=== PATIENT | male | born 1955 | race African-American/Black ===

== ENCOUNTER 2018-08-16 05:43 | Emergency (ER) | payer OTHER ==
[~2018-08-16] VITALS: Ht 182.9 cm; Wt 90.7 kg
[2018-08-16] MEDS ORDERED: LEXAPRO10 MG ORAL (05:53)
[2018-08-16] MEDS ORDERED: KEPPRA500 M4 ORAL (05:53)
[2018-08-16] MEDS ORDERED: VITAMIN D2000 UNI3 PO (05:53)
[2018-08-16] MEDS ORDERED: SEROQUEL50 MG ORAL (05:53)
[2018-08-16 05:55] VITALS: BP 118/66
--- NOTE | 2018-08-16 05:55 | NUR ---
ED Nurse Note: Patient was BIBA, with complaints of recent seizyre lasing 4 minutes, at half-way facility. Patient present post ictal, sleeping, waking periodically in a confused state attempting to get up out of bed.
[2018-08-16] MEDS ORDERED: LORazepam Inj 2mg/ml 1ml IV ONE (06:15)
[2018-08-16] MEDS ORDERED: levETIRAcetam 500mg/NS100ml 100 ML IVPB ONE (06:15)
--- NOTE | 2018-08-16 06:15 | Emergency Room Report ---
History of Present Illness General Chief Complaint: Seizure Source: Medical Record (Gael Robles MD) Present Illness HPI Is a 63-year-old male coming from a longterm with chief point of seizure. He has a history of seizure is currently taking Keppra. He had a tonic-clonic seizure activity lasting about 4-5 minutes. He is post ictal. No other injury. No incontinence of his urine or bowel. History is limited because of his postictal state. (Gael Robles MD) Allergies: Coded Allergies: No Known Allergies (Unverified , 08/16/18) Patient History Past Medical History: see triage record, old chart reviewed, seizures Past Surgical History: other Pertinent Family History: none Social History: Denies: smoking Immunizations: other Reviewed Nursing Documentation: PMH: Agreed; PSxH: Agreed (Gael Robles MD) Nursing Documentation-PMH Past Medical History: No History, Except For Hx Hypertension: Yes Hx Neurological Problems: Yes - dementia, schizophrenia, depression, traumatic brain injury Hx Seizures: Yes (Gael Robles MD) Review of Systems Eye: Denies: eye pain, blurred vision ENT: Denies: ear pain, nose congestion, throat swelling Respiratory: Denies: cough, shortness of breath Cardiovascular: Denies: chest pain, palpitations Gastrointestinal: Denies: abdominal pain, diarrhea, nausea, vomiting Musculoskeletal: Denies: back pain, joint pain Skin: Denies: rash Neurological: Denies: headache, numbness Endocrine: Denies: increased thirst, increased urine Hematologic/Lymphatic: Denies: easy bruising All Other Systems: limited - Secondary to post ictal state (Gael Robles MD) Physical Exam Vital Signs Date Time Temp Pulse Resp B/P (MAP) Pulse Ox O2 Delivery O2 Flow Rate FiO2 08/16/18 05:46 118 18 118/66 95 Room Air vitals with tachycardia Sp02 EP Interpretation: reviewed, normal General Appearance: well appearing, no apparent distress, other - Agitated Head: normocephalic, atraumatic Eyes: bilateral eye PERRL, bilateral eye EOMI ENT: hearing grossly normal, normal pharynx Neck: full range of motion, supple, no meningismus Respiratory: chest non-tender, lungs clear, normal breath sounds Cardiovascular #1: regular rate, rhythm, no murmur Gastrointestinal: normal bowel sounds, non tender, no mass, no organomegaly, no bruit, non-distended Musculoskeletal: back normal, normal range of motion Neurologic: grossly normal Skin: warm/dry (Gael Robles MD) Medical Decision Making Diagnostic Impression: Primary Impression: Seizure disorder ER Course Patient presents with a seizure with a postictal state. Labs ordered. I gave him a dose of Keppra here. I will sign this patient out to Dr. Palm for final disposition. (Gael Robles MD) ER Course Please see above note. Patient still not following commands at this time. It's difficult to ascertain the baseline mental status. He does have a history of schizophrenia and prior traumatic brain injury. In April for a Keppra level was 14 which is low but still possibly therapeutic. Labs here reveal white count of 12,000. This may be related to the seizure. A chest x-ray is ordered. Patient is tachycardic and IV hydration will be continued. Due to the fact that the patient has uncontrolled seizures at this time and difficult to ascertain mentation we will admit him to telemetry for observation and neurologic consultation. Just before transfer, patient more alert and appropriate - following commands. Still needs observation. Contacted Dr. Davidson at [facility] who accepts the patient. Laboratory Tests Test 08/16/18 06:10 White Blood Count 12.0 K/UL (4.8-10.8) H Red Blood Count 5.36 M/UL (4.70-6.10) Hemoglobin 15.7 G/DL (14.2-18.0) Hematocrit 50.4 % (42.0-52.0) Mean Corpuscular Volume 94 FL (80-99) Mean Corpuscular Hemoglobin 29.3 PG (27.0-31.0) Mean Corpuscular Hemoglobin Concent 31.2 G/DL (32.0-36.0) L Red Cell Distribution Width 13.2 % (11.6-14.8) Platelet Count 175 K/UL (150-450) Mean Platelet Volume 6.9 FL (6.5-10.1) Neutrophils (%) (Auto) 60.2 % (45.0-75.0) Lymphocytes (%) (Auto) 29.3 % (20.0-45.0) Monocytes (%) (Auto) 6.9 % (1.0-10.0) Eosinophils (%) (Auto) 1.8 % (0.0-3.0) Basophils (%) (Auto) 1.9 % (0.0-2.0) Sodium Level 139 MMOL/L (136-145) Potassium Level 4.3 MMOL/L (3.5-5.1) Chloride Level 99 MMOL/L (98-107) Carbon Dioxide Level 15 MMOL/L (21-32) L Anion Gap 26 mmol/L (5-15) H Blood Urea Nitrogen 9 mg/dL (7-18) Creatinine 1.7 MG/DL (0.55-1.30) H Estimate Glomerular Filtration Rate 41.2 mL/min (>60) Glucose Level 222 MG/DL (74-106) H Calcium Level 9.8 MG/DL (8.5-10.1) (Chico Palm MD) Rhythm Strip Diag. Results EP Interpretation: yes Rate: 115 Rhythm: NSR, no PVC's, no ectopy (Gael Robles MD) EP Interpretation: yes Rhythm: no PVC's, other - Sinus tachycardia (Chico Palm MD) Chest X-Ray Diagnostic Results Chest X-Ray Diagnostic Results : Chest X-Ray Ordered: Yes # of Views/Limited/Complete: 1 View Indication: Other EP Interpretation: Yes Interpretation: no effusion, no pneumothorax, other - increased okeefe R but poor inspriation Impression: Other Electronically Signed by: Electronically signed by Chico Palm MD (Chico Palm MD) Last Vital Signs Date Time Temp Pulse Resp B/P (MAP) Pulse Ox O2 Delivery O2 Flow Rate FiO2 08/16/18 05:46 118 18 118/66 95 Room Air Status: improved (Gael Robles MD) Last Vital Signs Date Time Temp Pulse Resp B/P (MAP) Pulse Ox O2 Delivery O2 Flow Rate FiO2 08/16/18 09:22 97.6 103 20 135/94 100 Nasal Cannula 2.0 Status: improved (Chico Palm MD) Disposition: XFER SHT-TRM HOSP Condition: Serious Gael Robles MD Aug 16, 2018 06:15 Chico Palm MD Aug 16, 2018 07:42
[2018-08-16 06:31] LABS: BASOPHILS % (AUTO) 1.9 % (0.0-2.0); EOSINOPHILS % (AUTO) 1.8 % (0.0-3.0); HEMATOCRIT 50.4 % (42.0-52.0); HEMOGLOBIN 15.7 G/DL (14.2-18.0); LYMPHOCYTES % (AUTO) 29.3 % (20.0-45.0); MEAN CORPUSCULAR VOLUME 94 FL (80-99); MONOCYTES % (AUTO) 6.9 % (1.0-10.0); NEUTROPHILS % (AUTO) 60.2 % (45.0-75.0); PLATELET COUNT 175 K/UL (150-450); RED BLOOD COUNT 5.36 M/UL (4.70-6.10); RED CELL DISTRIBUTION WIDTH 13.2 % (11.6-14.8)
[2018-08-16 06:39] LABS: ANION GAP 26 mmol/L (5-15); BLOOD UREA NITROGEN 9 mg/dL (7-18); CALCIUM 9.8 MG/DL (8.5-10.1); CARBON DIOXIDE 15 MMOL/L (21-32); CHLORIDE 99 MMOL/L (98-107); CREATININE 1.7 MG/DL (0.55-1.30); POTASSIUM 4.3 MMOL/L (3.5-5.1); SODIUM 139 MMOL/L (136-145)
--- NOTE | 2018-08-16 06:54 | NUR ---
ED Nurse Note: Patient wass administered 1 mg of ativan, he is no sleeping comfortably, vital signs are normalizing, pulse is still elevated at 107. Normal saline currently running.
--- NOTE | 2018-08-16 07:12 | NUR ---
HAND-OFF: Report given to MILA FERNANDEZ RN .
--- NOTE | 2018-08-16 07:24 | NUR ---
ED Nurse Note: Received pt from NITA Pearson. Pt is in bed sleeping comfortably, HR 110 annemarie, ERMD aware. No further order at this time. Seizure precaution applied. Will cont to monitor.
[2018-08-16 07:37] VITALS: BP 98/34
--- NOTE | 2018-08-16 07:55 | NUR ---
ED Nurse Note: Xray at the bedside.
[2018-08-16 09:12] VITALS: BP 135/94
--- NOTE | 2018-08-16 09:13 | NUR ---
ED Nurse Note: Report given to NITA Alexander at [facility]. Awaiting fot transportation. No sign of acute distress.
[2018-08-16 09:22] VITALS: BP 135/94
--- NOTE | 2018-08-16 09:22 | NUR ---
ED Nurse Note: Ambulance personels at bedside for transportation. no acute distress.
--- NOTE | 2018-08-16 12:16 | Diagnostic Imaging Report ---
Indication: Cough Technique: One view of the chest Comparison: none Findings: Inspiration is suboptimal. The heart is borderline enlarged. There is equivocal minimal interstitial congestion. No focal infiltrates. Pleural spaces are grossly clear Impression: Borderline cardiomegaly Equivocal minimal interstitial congestion
== END 2018-08-16 09:22 | disposition other institution (70) ==
LOC: EDBD 05:43 → EMR 06:42
DX: G40.909 Epilepsy, unspecified, not intractable, without status epilepticus (principal); I10 Essential (primary) hypertension; Z79.899 Other long term (current) drug therapy; F03.90 Unspecified dementia, unspecified severity, without behavioral disturbance, psychotic disturbance, mood disturbance, and anxiety; F20.9 Schizophrenia, unspecified
CPT/HCPCS: 36415; 71045; 80048; 85025; 96361; 96374; 96375; 99284; J1953

== ENCOUNTER 2019-07-07 01:45 | Inpatient (IN) | payer OTHER ==
[~2019-07-07] VITALS: Ht 170.2 cm; Wt 72.6 kg
[~2019-07-07 01:45] MED LIST: KEPPRA500 M4 ORAL; LEXAPRO10 MG ORAL; SEROQUEL50 MG ORAL; VITAMIN D2000 UNI3 PO
--- NOTE | 2019-07-07 01:54 | Emergency Room Report ---
History of Present Illness General Chief Complaint: Seizure Source: Medical Record, EMS Present Illness HPI This is a 64-year-old male from a assisted. He has a history of seizure for which she takes Keppra. He presents with chief plan of seizure. According to EMS, he had at least 5 tonic-clonic seizure activity. Each of them lasted about 30 seconds to a minute. He received 5 mg Versed IM by EMS to stop his seizure. Unable to get any other history because he is sedated and postictal. Per assisted note, he is compliant with his medication. No trauma. Unable any other history from this patient because of his postictal. Allergies: Coded Allergies: No Known Allergies (Unverified , 08/16/18) Patient History Past Medical History: see triage record, old chart reviewed, seizures Past Surgical History: other Pertinent Family History: none Social History: Denies: smoking Immunizations: other Reviewed Nursing Documentation: PMH: Agreed; PSxH: Agreed Nursing Documentation-PMH Hx Hypertension: Yes Hx Neurological Problems: Yes - dementia, schizophrenia, depression, traumatic brain injury Hx Seizures: Yes Review of Systems All Other Systems: limited - Post ictal Physical Exam Vital Signs Date Time Temp Pulse Resp B/P (MAP) Pulse Ox O2 Delivery O2 Flow Rate FiO2 07/07/19 01:46 98.4 128 20 133/62 (85) 96 Room Air Vitals with tachycardia Sp02 EP Interpretation: reviewed, normal General Appearance: well appearing, no apparent distress, Stupor Head: normocephalic, atraumatic Eyes: bilateral eye PERRL, bilateral eye EOMI ENT: hearing grossly normal, normal pharynx, other Neck: full range of motion, supple, no meningismus Respiratory: chest non-tender, lungs clear, normal breath sounds Cardiovascular #1: regular rate, rhythm, no murmur, tachycardia Gastrointestinal: normal bowel sounds, non tender, no mass, no organomegaly, no bruit, non-distended Musculoskeletal: back normal, normal range of motion Neurologic: grossly normal Psychiatric: other Medical Decision Making Diagnostic Impression: Primary Impression: Status epilepticus, generalized convulsive ER Course Patient presents with multiple small seizures. Seizure control with benzodiazepine. I loaded him with Keppra also. No evidence of any infection or intracranial injury. Will place in observation. No evidence of any infection or alcohol drugs. I contacted Dr. Romano for admission. EKG Diagnostic Results Rate: tachycardiac Rhythm: NSR ST Segments: other - bifasicular block Rhythm Strip Diag. Results EP Interpretation: yes Rate: 100 Rhythm: NSR, no PVC's, no ectopy Chest X-Ray Diagnostic Results Chest X-Ray Diagnostic Results : Chest X-Ray Ordered: Yes # of Views/Limited/Complete: 1 View Indication: Shortness of Breath EP Interpretation: Yes Interpretation: no consolidation, no effusion, no pneumothorax, no acute cardiopulmonary disease Impression: No acute disease Electronically Signed by: Gael Robles MD CT/MRI/US Diagnostic Results CT/MRI/US Diagnostic Results : Imaging Test Ordered: CT head Impression Read by radiologist as neg. Last Vital Signs Date Time Temp Pulse Resp B/P (MAP) Pulse Ox O2 Delivery O2 Flow Rate FiO2 07/07/19 01:46 98.4 128 20 133/62 (85) 96 Room Air Status: improved Disposition: PLACE IN OBSERVATION Condition: Serious Gael Robles MD Jul 07, 2019 01:54
[2019-07-07] MEDS ORDERED: levETIRAcetam 500 MG in D5W 110 ML IV ONE (02:00)
[2019-07-07] MEDS ORDERED: LORazepam Inj 2mg/ml 1ml IV ONE (02:00)
[2019-07-07] MEDS ORDERED: SEROQUEL100 MG ORAL (02:02)
[2019-07-07] MEDS ORDERED: KEPPRA500 M4 ORAL (02:02)
[2019-07-07] MEDS ORDERED: VITAMIN D32000 UNI3 PO (02:02)
[2019-07-07] MEDS ORDERED: ASPIR 8181 MG ORAL (02:02)
[2019-07-07 02:12] LABS: BASOPHILS % (AUTO) 2.1 % (0.0-2.0); EOSINOPHILS % (AUTO) 2.2 % (0.0-3.0); HEMATOCRIT 47.4 % (42.0-52.0); HEMOGLOBIN 16.1 G/DL (14.2-18.0); LYMPHOCYTES % (AUTO) 39.2 % (20.0-45.0); MEAN CORPUSCULAR VOLUME 90 FL (80-99); MONOCYTES % (AUTO) 9.9 % (1.0-10.0); NEUTROPHILS % (AUTO) 46.6 % (45.0-75.0); PLATELET COUNT 176 K/UL (150-450); RED BLOOD COUNT 5.28 M/UL (4.70-6.10); RED CELL DISTRIBUTION WIDTH 12.4 % (11.6-14.8); WHITE BLOOD COUNT 9.9 K/UL (4.8-10.8)
--- NOTE | 2019-07-07 02:12 | NUR ---
ED Nurse Note: Patient returned from CT in stable condition and placed back on registered nurse cardiac telemetry.
--- NOTE | 2019-07-07 02:12 | NUR ---
ED Nurse Note: Patient brought in by ambulance from [facility] d/t witnessed seizures 4x in 1 hour. Per EMS, seizures lasted 1-2 minutes each. Patient post-ictal upon arrival, no seizures witnessed. Patient not alert or oriented, and nonverbal. Patient non-ambulatory at this time. Patient placed in gown and monitoring analyst. Blood sugar 138 mg/dL. Patient placed on 2L nasal cannula and side rails padded. Right hand 20g IV established, blood and urine collected and sent to lab. Per EMS, facility states patient is usually aao x 2.
[2019-07-07 02:13] LABS: APPEARANCE,URINE CLEAR; BILIRUBIN, URINE NEGATIVE (NEGATIVE); COLOR,URINE PALE YELLOW; GLUCOSE, URINE (UA) NEGATIVE (NEGATIVE); KETONES,URINE NEGATIVE (NEGATIVE); LEUKOCYTE ESTERASE ,URINE NEGATIVE (NEGATIVE); NITRITE,URINE NEGATIVE (NEGATIVE); PH,URINE 6.5 (4.5-8.0); UROBILINOGEN,URINE NORMAL MG/DL (0.0-1.0)
[2019-07-07 02:15] LABS: PROTEIN,URINE NEGATIVE (NEGATIVE)
[2019-07-07 02:22] LABS: ANION GAP 23 mmol/L (5-15); BLOOD UREA NITROGEN 7 mg/dL (7-18); CALCIUM 8.9 MG/DL (8.5-10.1); CARBON DIOXIDE 17 MMOL/L (21-32); CHLORIDE 101 MMOL/L (98-107); CREATININE 1.4 MG/DL (0.55-1.30); POTASSIUM 3.6 MMOL/L (3.5-5.1); SODIUM 141 MMOL/L (136-145)
[2019-07-07 02:27] VITALS: BP 111/67
[2019-07-07 02:27] LABS: ALANINE AMINOTRANSFERASE 68 U/L (12-78); ALBUMIN 3.7 G/DL (3.4-5.0); ALBUMIN/GLOBULIN RATIO 0.8 (1.0-2.7); ALKALINE PHOSPHATASE 88 U/L (46-116); ASPARTATE AMINO TRANSFERASE 46 U/L (15-37); BILIRUBIN,TOTAL 0.2 MG/DL (0.2-1.0)
--- NOTE | 2019-07-07 02:42 | Diagnostic Imaging Report ---
Indications: Seizure Technique: Spiral acquisitions obtained through the brain. Angled axial and coronal 5 x 5 mm slices were reconstructed. Total dose length product 1304 mGycm. CTDI vol(s) 6 mGy. Dose reduction achieved using automated exposure control Comparison: None. Findings: There is enlargement of the lateral ventricles which is slightly out of proportion to the size of the sulci. There is encephalomalacia involving the left frontal, parietal, and temporal lobes. There is a small focus of encephalomalacia in the right frontal lobe. There is evidence of an old right frontal jarred hole. No acute intracranial hemorrhage or edema. Normal arguello-white differentiation otherwise. No mass effect nor midline shift. Intact calvarium. The mastoids are clear. Visualized orbits and sinuses are unremarkable. Impression: Ventriculomegaly, likely due to central volume loss but the possibility of hydrocephalus should also be considered. Multiple areas of encephalomalacia, as described. Most likely on the basis of old infarcts but may indicate other prior insults as well. Evidence of prior right frontal jarred hole Negative for acute cranial bleed or mass effect This essentially agrees with the preliminary interpretation provided overnight by [facility] teleradiology service, with minor variation. The CT scanner at [facility] is accredited by the [employer] and the scans are performed using protocols designed to limit radiation exposure to as low as reasonably achievable to attain images of sufficient resolution adequate for diagnostic evaluation.
--- NOTE | 2019-07-07 03:48 | NUR ---
ED Nurse Note: Report given to NITA Curry in telemetry.
--- NOTE | 2019-07-07 04:20 | NUR ---
ED Nurse Note: Patient transferred to telemetry unit via [place] on ACLS protocol with phototypesetting equipment monitor accompanied by 1 RN and outdoor emergency care technician in stable condition.
--- NOTE | 2019-07-07 04:30 | NUR ---
NURSE NOTES: Received report from FAIZA Medina RN. Patient was transferred to Telemetry unit from ER via [facility], 2 staff member assist without incident. No signs of acute distress or pain noted at this time. On 2L nasal cannula. AOx0; unable to verbalize needs. Aphasic. Checked IV site; patent and flushed. No erythema, bleeding, or infiltration noted. Patient put on Tele box; sinus tachycardic with BBB on the monitor (110s). Belongings list checked with transferring RN. Skin assessment performed; skin is intact. No open wounds noted. Bed at lowest position, brakes on, siderails up x3. Siderails padded following seizure precautions. Suction at bedside. Call light within reach. Will continue to monitor.
[2019-07-07 04:40] VITALS: BP 123/71
[2019-07-07] MEDS ORDERED: COLACE100 MG ORAL (04:48)
[2019-07-07] MEDS ORDERED: QUETIAPINE FUMA25 MG ORAL (04:48)
--- NOTE | 2019-07-07 05:43 | NUR ---
NURSE NOTES: Called Dr. Romano for admission orders. Awaiting callback.
--- NOTE | 2019-07-07 06:05 | NUR ---
NURSE NOTES: Received new orders from Dr. Romano including no DVT prophylaxis. Noted and carried out.
--- NOTE | 2019-07-07 06:16 | NUR ---
NURSE NOTES: Called Dr. Romano again for admission orders. Awaiting callback.
[2019-07-07] MEDS ORDERED: LORazepam Inj 2mg/ml 1ml IV PRN (07:00)
--- NOTE | 2019-07-07 07:10 | NUR ---
NURSE NOTES: pt on vehicle monitor technician, plans to transfer to Med surg. Pt on vehicle monitor technician no signs of cardiac or respiratory distress. Bed rails are added. Call light within reach. Bed locked and in lowest position . will continue to monitor pt.
[2019-07-07 09:00] VITALS: BP 119/71
[2019-07-07] MEDS ORDERED: Vitamin D 1000 IU Tab ORAL SCH (09:00)
[2019-07-07] MEDS ORDERED: Docusate 100mg cap ORAL SCH (09:00)
[2019-07-07] MEDS ORDERED: Aspirin EC 81mg tab ORAL SCH (09:00)
--- NOTE | 2019-07-07 10:41 | Diagnostic Imaging Report ---
Indication: Shortness of breath Technique: One view of the chest Comparison: 08/16/2018 Findings body habitus limits evaluation.: The heart is borderline enlarged. The there are equivocal minimal interstitial congestive changes, similar to the prior exam. No focal airspace consolidation. No definite effusions.. Impression: Borderline cardiomegaly Equivocal minimal interstitial congestion. Correlate with clinical findings
[2019-07-07 12:00] VITALS: BP 104/41
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
[2019-07-07 16:00] VITALS: BP 111/71
--- NOTE | 2019-07-07 16:30 | History and Physical Report ---
DATE OF ADMISSION: 07/07/2019 HISTORY OF PRESENT ILLNESS: This is an elderly 64-year-old male currently came to the emergency room for having recurrent seizure. The patient now in the bed sleeping. PAST MEDICAL HISTORY: Significant for hypertension, seizure, depression. MEDICATIONS: He is taking Seroquel, Keppra, Colace, vitamin D, aspirin. PHYSICAL EXAMINATION: GENERAL: This is an elderly male, currently in bed and sleeping, looks otherwise comfortable. VITAL SIGNS: Blood pressure is 123/71, pulse 119, respirations 24, temperature 99.1. HEENT: AT/NC. EOMI. PERRLA. NECK: Supple. No JVD. CHEST: Bilaterally clear. CARDIOVASCULAR: Regular rhythm, tachycardia sinus. ABDOMEN: Soft. Positive bowel sounds. EXTREMITIES: CCE. GENITOURINARY: Deferred. LABORATORY DATA: White count 10, hemoglobin 16, hematocrit 47, platelets are 176. Chemistry panel, BUN 7, creatinine 1.4. LFTs are unremarkable. Sodium and potassium is fine. CT head is negative. Urine drug screen is negative. Toxicology is negative. ASSESSMENT: 1. Recurrent seizure. 2. Depression. 3. Psychosis. PLAN: 1. We will currently continue Seroquel, lorazepam, Keppra, Colace. 2. Consider Neurology consult and Psych consult. Rolan Romano M.D. DR: Josi JOB#: [id number] CC:
--- NOTE | 2019-07-07 17:35 | NUR ---
NURSE NOTES: pt. off from graphics manager. pt transferred to [facility] in stable condition. Pt had been very quiet all day until a 20 min ago. He started trying to pull out IV trying to get out of bed. IV is intact and patent. Pt did not eat much all day. Belonging were transferred with pt.
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
--- NOTE | 2019-07-07 18:00 | NUR ---
NURSE NOTES:Patient placed on restraints, however patient still managing to get his legs over the side of the bed and is almost sliding off the bed onto the floor. Dr osborne observed patient. Informed supervisor in charge that patient most likely requires a sitter. shampoo assistant spoke to the MD who prescribed Haldol, ativan and benadryl one time order IM.
[2019-07-07] MEDS ORDERED: DiphenhydrAMINE 50mg/ml Inj IM SCH (18:15)
[2019-07-07] MEDS ORDERED: Haloperidol 5mg/ml Inj IM SCH (18:15)
[2019-07-07] MEDS ORDERED: LORazepam Inj 2mg/ml 1ml IM SCH (18:15)
--- NOTE | 2019-07-07 18:30 | NUR ---
NURSE NOTES: Patient appears much calmer now, laying in bed, patient still disheveled and keeps moving the blankets off of him but is no longer draping his body over the side of the bed. Will continue to monitor patient closely.
--- NOTE | 2019-07-07 19:45 | NUR ---
HAND-OFF: Report given to NITA Hardin.
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
[2019-07-07 20:00] VITALS: BP 115/77
[2019-07-08] VITALS: BP 113/72
[2019-07-08 04:00] VITALS: BP 109/70
--- NOTE | 2019-07-08 07:30 | NUR ---
NURSE NOTES: Report received from Jami MOYA. Patient is alert and oriented x 1. Patient currently trying to get out of bed. With help from JIGGER MACHINE OPERATOR released patient from restraints. Boosted and repositioned patient. Bilateral soft wrist restraints re-applied. Patient has circulation, radial pules present, and normal skin color in hands bilaterally. 20 melany IV noted in right hand. bed locked, alarmed, and in lowest position. Will continue to follow plan of care.
--- NOTE | 2019-07-08 08:43 | NUR ---
CASE MANAGEMENT: INITIAL REVIEW 64YR OLD MALE FROM [facility] FROM [facility] CC: SEIZURE SI:STATUS EPILEPTICUS 98.4 128 20 133/62 96% ON RA C02 17 ANION GAP 23 CREAT 1.4 BG 141 AST 46 IS:IV KEPPRA X1 IV ATIVAN X1 IVF NS BOLUS X1 CT HEAD -ENCEPHALOMALACIA . PREVIOUS SANDRA HOLE CHEST [id number] CARDIOMEGALY \: 4E MED SURG UNIT PLAN: NEURO CHECK OBSERVE ON LINO WRIST RESTRAINTS SEIZURE PRECAUTION
[2019-07-08 09:00] VITALS: BP 120/75
[2019-07-08] MEDS: Aspirin EC 81mg tab ORAL SCH (09:20)
[2019-07-08] MEDS: Vitamin D 1000 IU Tab ORAL SCH (09:23)
[2019-07-08] MEDS: Docusate 100mg cap ORAL SCH (09:23)
--- NOTE | 2019-07-08 11:45 | Consultation ---
DATE OF CONSULTATION: 07/07/2019 NOTE: POOR AUDIO NEUROLOGIC CONSULTATION CONSULTING PHYSICIAN: Rodo Vega M.D. HISTORY OF PRESENT ILLNESS: The patient is a 64-year-old man who is admitted here for seizure. He has a previous history of seizures, seen in the emergency room at this hospital on August 16, 2018. It was noted that he had a previous Keppra level of 14. At that time, he had a tonic-clonic seizure lasting about 45 minutes. Today he is on 1000 mg of Keppra b.i.d. when he came in to the hospital. Today, he had at least a 5-minute tonic-clonic seizure. The patient had at least 5 tonic-clonic seizures lasting about 30 seconds to a minute. He received 5 mg of Versed IM by EMS to stop the seizure. We are unable to get any history because he is sedated and postictal. There was no trauma when he came to the hospital. The chest x-ray revealed equivocal minimal interstitial congestion and borderline cardiomegaly. His CT scan of the brain today revealed ventriculomegaly, positive hydrocephalus, multiple areas of encephalomalacia involving the left frontoparietal and temporal lobes and in the smaller area in the right frontal lobe. There is an old right frontal bur hole. Laboratory studies revealed a normal CBC. Negative toxicology screen. Normal urinalysis. Creatinine of 1.4 with a BUN of 7. Sodium was normal. Calcium was normal. Magnesium was not obtained. 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 I was asked to see the patient for seizures. He has not had any seizures while in the hospital. The patient was continued on Keppra 500 mg and Keppra 1000 mg q.12 h. He was given lorazepam 1 mg one time. He was on Seroquel as an outpatient 25 mg vitamin D3 . PAST MEDICAL HISTORY: 1. 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 2. History of schizophrenia. 3. Depression. 4. 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 ALLERGIES: No known allergies. SURGERIES: See the above. FAMILY HISTORY: Not available. SOCIAL HISTORY: Not available. PHYSICAL EXAMINATION: GENERAL: He is a well-developed, well-nourished, overweight man, very combative initially, trying to get out of bed and fighting with the nurses. VITAL SIGNS: Pulse is 110 and regular, temperature is 97.8 degrees. Last blood pressure was 111/71. Last pO2 97%. HEENT: Could not examine the patient because of combativeness. NEUROLOGIC EXAMINATION: Mental status, the patient did not answer to name would not stick out his tongue . Cranial nerves II through XII could not be examined except cranial nerve V, corneals appeared to be intact. Muscle examination, there is paratonia in all 4 extremities. Moves his extremities equally symmetrically bilaterally. Reflexes could not be done in toes no Babinski response. IMPRESSION AND PLAN: This patient is in a postictal state. He had a seizure disorder secondary to previous brain injury. The seizure threshold finally reduced by the Seroquel. Therefore, he was given 1000 mg p.o. b.i.d. at this point. We would also obtain a psychiatric evaluation since Seroquelcan reduce the seizure threshold The EEG can be obtained . Add on Keppra 500 mg orally b.i.d. EEG when possible and behavior is controlled. Thank you for this interesting case. Rodo Vega MD DR: [place] JOB#: [id number] CC: SHEN
[2019-07-08 12:00] VITALS: BP 123/73
--- NOTE | 2019-07-08 14:44 | NUR ---
CASE MANAGEMENT:REVIEW SI;STATUS EPILEPTICUS 98.7 94 22 109/70 94% ON RA IS;KEPPRA PO Q12 HRS ATIVAN IV Q6 HRS ASA PO Q6 HRS MED SURG STATUS DCP;FROM [facility]
--- NOTE | 2019-07-08 15:00 | Progress Note ---
DATE: 07/08/2019 SUBJECTIVE: This is elderly male who was very agitated yesterday, given medical treatment. The patient is currently better. OBJECTIVE: VITAL SIGNS: Blood pressure 109/70, pulse 89, no fever. CHEST: Bilaterally clear. CARDIOVASCULAR: Regular rhythm. ABDOMEN: Soft. EXTREMITIES: CCE. ASSESSMENT: 1. Recurrent seizure. 2. Psychosis. 3. Depression. PLAN: Awaiting for Psychiatry consult. Continue aspirin, Colace, Keppra, Seroquel. Psychiatry and Neurology is on consult. Rolan Romano M.D. DR: BRENNAN JOB#: [id number] CC:
[2019-07-08 16:00] VITALS: BP 114/75
--- NOTE | 2019-07-08 18:45 | Consultation ---
DATE OF CONSULTATION: 07/08/2019 CONSULTING PHYSICIAN: Darrel Ornelas M.D. REFERRING PHYSICIAN: Artis Romano M.D. HISTORY OF PRESENT ILLNESS: This is a 64-year-old male with a history of seizure disorder as well as hypertension, major depressive disorder, psychosis, who is admitted to the hospital for medical stabilization. The patient is having depressed mood, anhedonia, anxiety. The patient is on multiple psychotropic medications. PAST MEDICAL HISTORY: 1. Hypertension. 2. Seizure. ALLERGIES: No known drug allergies. SUBSTANCE ABUSE HISTORY: No known history of illicit drug use or alcohol. Toxicology is negative. MENTAL STATUS EXAMINATION: The patient is alert, oriented times self. Mood is agitated. Affect is flat. Thought process is disorganized. Thought content, no suicidal, homicidal ideation. Cognition is impaired. Insight and judgment is impaired. ASSESSMENT: 1. Dementia with behavior disturbance. 2. Major depressive disorder. PLAN: 1. Start the patient on Seroquel 75 mg b.i.d. 2. Ativan p.r.n. 3. We will continue to follow and readjust the medications. Darrel Ornelas M.D. DR: RADHA JOB#: [id number] CC:
--- NOTE | 2019-07-08 19:16 | NUR ---
HAND-OFF: Report given to Svetlana MOYA.
--- NOTE | 2019-07-08 19:20 | NUR ---
NURSE NOTES: Pt received in bed with bilateral wrist restraints, no signs of distress or c/o pain, IV in place, will continue to monitor.
[2019-07-08 20:00] VITALS: BP 120/71
[2019-07-09] VITALS: BP 132/74
[2019-07-09 04:00] VITALS: BP 125/81
--- NOTE | 2019-07-09 07:16 | NUR ---
HAND-OFF: Report given to NITA Patton.
--- NOTE | 2019-07-09 07:30 | NUR ---
NURSE NOTES: Received report from NITA Mota. Patient confused. On room air, no signs of distress or labored breathing. IV access compromised, will reestablish. On bilateral soft wrist restraints. Bed in lowest position with call light in reach. Will continue with plan of care.
[2019-07-09 08:00] VITALS: BP 117/88
[2019-07-09] MEDS: Aspirin EC 81mg tab ORAL SCH (08:33)
[2019-07-09] MEDS: Vitamin D 1000 IU Tab ORAL SCH (08:34)
[2019-07-09] MEDS: Docusate 100mg cap ORAL SCH (08:34)
[2019-07-09] MEDS: LORazepam Inj 2mg/ml 1ml IV PRN (09:59)
[2019-07-09 12:00] VITALS: BP 120/81
--- NOTE | 2019-07-09 14:25 | NUR ---
PT Note PT cory completed, treatment initiated. Patient has muscle weakness and decreased balance, requiring assist in all mobility and gait. Pt can benefit from PT services to increase his strength and balance to improve his safety in mobility and gait. Addendum: 07/09/19 at 1425 by NIC LUNA PT Amended: Links added.
[2019-07-09 16:00] VITALS: BP 127/75
[2019-07-09] MEDS: LORazepam Inj 2mg/ml 1ml IVP PRN (18:17)
--- NOTE | 2019-07-09 19:24 | NUR ---
HAND-OFF: Report given to NITA Mota.
--- NOTE | 2019-07-09 19:30 | Progress Note ---
DATE: 07/09/2019 SUBJECTIVE: This is an elderly male, currently agitated, but has been doing . OBJECTIVE: VITAL SIGNS: Blood pressure 125/81, pulse 93, respirations 20, and temperature 97.7. HEENT: NAD. CHEST: Bilaterally clear. CARDIOVASCULAR: Regular rhythm. ABDOMEN: Soft. EXTREMITIES: No edema. : Deferred. ASSESSMENT AND PLAN: 1. Psychosis. 2. Seizure. 3. Encephalopathy. PLAN: Discharge plan home. Follow up as outpatient with primary care. Rolan Romano M.D. DR: Elmer JOB#: [id number] CC:
--- NOTE | 2019-07-09 19:30 | NUR ---
NURSE NOTES: Pt received in bed, restraints in place, no c/o pain or signs of distress, rcvd report that pt will have a repeat EEG tonight, will continue to monitor.
[2019-07-09 20:00] VITALS: BP 114/65
--- NOTE | 2019-07-09 21:10 | NUR ---
NURSE NOTES: EEG was done at bedside.
[2019-07-10] VITALS (7 sets, daily range): BP systolic 111–134; BP diastolic 66–101
[2019-07-10] MEDS: LORazepam Inj 2mg/ml 1ml IVP PRN ×2 (03:56→22:18)
--- NOTE | 2019-07-10 07:25 | NUR ---
NURSE NOTES: Received patient in bed , patient is very confused. , no signs of distress .HL patent, On bilateral soft wrist restraints. Bed in lowest position with call light in reach. Will continue with plan of care. amaya curry
--- NOTE | 2019-07-10 07:28 | NUR ---
HAND-OFF: Report given to NITA Rodriguez. EEG at bedside last night
[2019-07-10] MEDS: Aspirin EC 81mg tab ORAL SCH (08:06)
[2019-07-10] MEDS: Docusate 100mg cap ORAL SCH (08:07)
[2019-07-10] MEDS: Vitamin D 1000 IU Tab ORAL SCH (08:07)
[2019-07-10] MEDS: LORazepam Inj 2mg/ml 1ml IV PRN (09:48)
--- NOTE | 2019-07-10 16:00 | Electroencephalogram ---
DATE OF PROCEDURE: 07/09/2019 REQUESTING PHYSICIAN: Rodo Vega M.D. READING PHYSICIAN: Jin Yanez M.D. PROCEDURE PERFORMED: EEG. HISTORY: This EEG was performed on a 64-year-old gentleman with a history of multiple medical problems including a seizure disorder associated with encephalomalacia in the left frontoparietal area. In addition, the patient also has a history of right frontal bur hole. The purpose of this EEG was to better delineate the type of seizure disorder. TECHNICAL NOTE: This EEG was performed on a [employer] with electrodes placed on the scalp according to the International 10-20 system. Pphes-ry-bqmfc and zodmi-jm-nay montages were used. The EEG was technically satisfactory and was performed in the awake and drowsy states. OBSERVATIONS: In the best-awake state, the background activity consisted of 8-9 Hz posteriorly predominant well-developed alpha waveforms, which attenuated on eye opening. Drowsiness was characterized by dissolution of the alpha rhythm and the appearance of slower frequencies in the 5-6 Hz theta range. During drowsiness, T4 sharp and slow wave discharges were seen from time to time. IMPRESSION: This is an abnormal EEG characterized by T4 sharp and slow wave discharges seen during drowsiness. COMMENT: This study is consistent with right midtemporal epileptogenic focus. Clinical correlation is recommended. Jin Yanez M.D., M.S.P.H. DR: Natividad JOB#: [id number] [facility]
--- NOTE | 2019-07-10 19:16 | NUR ---
HAND-OFF: Report given to Meredith accordingly patient resting comfortably in bed, needs met and anticipated patricio conde
--- NOTE | 2019-07-10 19:26 | NUR ---
NURSE NOTES: Received patient on bed awake.confused. with iv line on the left hand. with bilateral soft wrist restraints. no evidence of injury noted. no sob. denies any pain or discomfort. bed locked and in lowest position. call light and light button within easy reach. will continue plan of care.
[2019-07-11] VITALS: BP 125/80
--- NOTE | 2019-07-11 00:30 | Progress Note ---
DATE: 07/10/2019 SUBJECTIVE: This is an elderly male who was earlier agitated. The patient physically doing better. Psych consult was obtained. The patient was given Ativan. PHYSICAL EXAMINATION: VITAL SIGNS: Stable. CHEST: Bilaterally clear. CARDIOVASCULAR: Regular rhythm. ABDOMEN: Soft. ASSESSMENT: 1. Recurrent seizure. 2. Psychosis. 3. Depression. 4. Dementia. PLAN: 1. We will currently continue current and behavior therapy . 2. Continue Keppra. 3. . 4. Discharge plan for SNF. Rolan Romano M.D. DR: Josi JOB#: [id number] CC:
[2019-07-11 04:00] VITALS: BP 103/71
--- NOTE | 2019-07-11 07:25 | NUR ---
HAND-OFF: Report given to amaya richey.
--- NOTE | 2019-07-11 07:26 | NUR ---
NURSE NOTES: Received patient in bed awake. Bilateral soft wrist restraints in place, pulses palpable, no skin issues noted on site. No SOB or acute distress. Noted trying to get out of bed, kept on cloase watch. HOB elevated. Bed locked in lowest position. Call light within reach. Will continue plan of care.
[2019-07-11 08:00] VITALS: BP 115/80
[2019-07-11] MEDS: Aspirin EC 81mg tab ORAL SCH (08:56)
[2019-07-11] MEDS: Docusate 100mg cap ORAL SCH (08:56)
[2019-07-11] MEDS: Vitamin D 1000 IU Tab ORAL SCH (08:56)
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
[2019-07-11 12:00] VITALS: BP 108/88
--- NOTE | 2019-07-11 15:23 | NUR ---
CASE MANAGEMENT:REVIEW 07/09/2019 SI;ENCEPHALOPATHY, SEIZURE 98.9 110 22 127/75 955 on ra IS;ATIVAN IV Q6 HRS KEPPRA PO Q12 HRS MED SURG STATUS CASE MANAGEMENT:REVIEW 07/10/2019 SI;ENCEPHALOPATHY 98.9 101 23 132/101 95% ON RA IS IS;ATIVAN IV Q6 HRS KEPPRA PO Q12 HRS MED SURG STATUS CASE MANAGEMENT:REVIEW SI;ENCEPHALOPATHY 98.9 100 20 103/71 94% ON RA IS;ATIVAN IV Q6 HRS KEPPRA PO Q12 HRS MED SURG STATUS DCP;FROM [facility]
--- NOTE | 2019-07-11 15:53 | NUR ---
*-*DISCHARGE PLANNING*-* PATIENT HAS BEEN REFERRED TO: [facility] P: [phone] F: [phone] *-* CLINICALS FAXED Addendum: 07/12/19 at 1619 by AYSHA MARTIN CM ALEXY HAS BEEN ACCEPTED TO [facility] 19-A SKILLED
[2019-07-11 16:00] VITALS: BP 116/79
--- NOTE | 2019-07-11 16:34 | NUR ---
NURSE NOTES: One restraint removed (left) as ordered by Dr Romano. Patient noted immediately to become agitated, cursing for not being allowed to smoke and trying to get out of bed. Charge nurse aware. Left restraint placed back on.
--- NOTE | 2019-07-11 17:30 | NUR ---
CASE MANAGEMENT:DISCHARGE PLANNING PATIENT HAS BEEN REFERRED TO [facility] P: F:
--- NOTE | 2019-07-11 19:30 | NUR ---
NURSE NOTES: Received patient in bed. Patient is confused, mumbles to himself, Alert x1. Patient is restless, moves around a lot in bed and pulls the restraints. No signs of pain at this time. Side rails padded for seizure precautions. On room air, respirations unlabored. IV in the Left hand, no redness or swelling. Bilateral soft-wrist restraints in place.
--- NOTE | 2019-07-11 19:30 | Progress Note ---
DATE: 07/11/2019 SUBJECTIVE: This is an elderly 64-year-old male currently in the bed, restrained, doing okay, PHYSICAL EXAMINATION: VITAL SIGNS: Blood pressure 116/79, pulse 94, respirations 19, no fever. HEENT: NAD. CHEST: Bilaterally clear. CARDIOVASCULAR: Regular rhythm. ABDOMEN: Soft. EXTREMITIES: CCE. NEUROLOGICAL: The patient is bedbound. ASSESSMENT: 1. Psychosis. 2. Depression. 3. Agitation. 4. Seizure. PLAN: 1. The patient on psychotropic behavior therapy. 2. Discussed with charge nurse to open up the restraints. 3. Continue psychotropic behavior therapy. 4. Discharge plan to SNF. Rolan Romano M.D. DR: Josi JOB#: [id number] CC:
--- NOTE | 2019-07-11 19:41 | NUR ---
HAND-OFF: Report given to
[2019-07-11 20:00] VITALS: BP 128/76
[2019-07-12] VITALS: BP 125/82
--- NOTE | 2019-07-12 02:15 | Progress Note ---
DATE: 07/11/2019 SUBJECTIVE: The patient is confused. Episodes of anxiety and restlessness. Poor memory. Not able to be engaged and requires administration of medication. MENTAL STATUS EXAMINATION: The patient is alert, confused, and disoriented. Mood is agitated. Affect is flat. Thought process, disorganized. Thought content, no suicidal or homicidal ideation. Cognition is impaired. Insight and judgment is impaired. ASSESSMENT: 1. Dementia with behavior disturbance. 2. Major depressive disorder. PLAN: 1. Seroquel 75 mg t.i.d. 2. Ativan p.r.n. 3. Provide the patient with reality orientation and supportive therapy. Darrel Ornelas M.D. DR: GOMEZ JOB#: [id number] CC:
[2019-07-12 04:00] VITALS: BP 110/70
--- NOTE | 2019-07-12 07:24 | NUR ---
HAND-OFF: Report given to Lolita MOYA.
--- NOTE | 2019-07-12 07:25 | NUR ---
NURSE NOTES: Received patient in bed awake. No SOB or acute distress. IV line intact and patent. Bilateral wrist restraints on, pulses palpable, no skin issues noted on site. Noted with restless behavior. HOB elevated. Bed locked in lowest position. Call light within reach. Will continue plan of care.
[2019-07-12 08:00] VITALS: BP 127/83
--- NOTE | 2019-07-12 08:00 | NUR ---
NURSE NOTES: Patient found sitting up on bed with left wrist restraint disconnected. Restraints put back on.
[2019-07-12] MEDS: Vitamin D 1000 IU Tab ORAL SCH (08:45)
[2019-07-12] MEDS: Docusate 100mg cap ORAL SCH (08:45)
[2019-07-12] MEDS: Aspirin EC 81mg tab ORAL SCH (08:45)
[2019-07-12 12:00] VITALS: BP 125/87
--- NOTE | 2019-07-12 12:13 | NUR ---
RD ASSESSMENT & RECOMMENDATIONS SEE CARE ACTIVITY FOR COMPLETE ASSESSMENT DAILY ESTIMATED NEEDS: Needs based on cardiac 71.5kg adj 25-30 kcals/kg 7089-5225 total kcals 1-1.2 g protein/kg 72-157 g total protein 25-30 mL/kg 9637-4408 total fluid mLs NUTRITION DIAGNOSIS: Difficulty chewing / and or swallowing r/t seizure activity? as evidenced by pt on [facility] soft ground texture diet. CURRENT DIET: Regular ms ground PO DIET RECOMMENDATIONS: LOW NA DIET/ texture per TECHNICAL SERVICES ANALYST ADDITIONAL RECOMMENDATIONS: 1) TECHNICAL SERVICES ANALYST eval for appropriate texture, ability to upgrade texture 2) Last BG 141. Rec HgA1C for eval 3) 1:1 feeds while on restraints 4) add snacks in b/w meals w/ variable intake
--- NOTE | 2019-07-12 13:30 | NUR ---
NURSE NOTES: Patient found to be disconnected to left wrist restraint again, lace was broken and IV line dislodged. Dr dobbins and Dr Ornelas aware, new orders noted and carried out.
--- NOTE | 2019-07-12 13:30 | NUR ---
*-* INSURANCE *-* ALL CLINICALS AND REVIEWS HAVE BEEN FAXED TO: [employer] [facility] Ref#[id number] CM: Palmira ext [phone] fax# [phone] & MARY Barragan ref# luís # [phone] fax#[phone]
[2019-07-12] MEDS ORDERED: LORazepam 1mg tab ORAL PRN (15:00)
[2019-07-12 16:00] VITALS: BP 100/58
--- NOTE | 2019-07-12 16:07 | NUR ---
PHARMACY OPERATIONS COORDINATOR NOTES PT ACCEPTED BACK TO [facility] B[facility] A SKILLED. AWAITING OFFICIAL DC ORDER. [facility] TO TRANSPORT PT ONCE DC ORDER IS GIVEN.
--- NOTE | 2019-07-12 18:30 | NUR ---
NURSE NOTES: Patient for discharge to [facility], report given to RAN Hernandez. Family member Maicol notified. Belongings accounted for, no new skin issues noted.
--- NOTE | 2019-07-12 19:30 | NUR ---
HAND-OFF: Report given to minsu.
--- NOTE | 2019-07-12 19:30 | NUR ---
NURSE NOTES: Received report from NITA Mchugh. Patient on bilateral soft wrist restraint with pulses present, warm to touch, and intact skin. Patient a/a/o x1, breathing unlabored on room air without distress. Patient shaking, anxious, tensed and hard to calm. No IV access, MD aware. Bed placed at the lowest with alarm, brake, and siderails up and padded for safety. Call light placed within reach. Will continue to monitor and provide care as ordered
[2019-07-12 20:00] VITALS: BP 119/62
[2019-07-12] MEDS ORDERED: DiphenhydrAMINE 50mg/ml Inj IM SCH (20:00)
[2019-07-12] MEDS ORDERED: Haloperidol 5mg/ml Inj IM SCH (20:00)
[2019-07-12] MEDS ORDERED: LORazepam Inj 2mg/ml 1ml IM SCH (20:00)
--- NOTE | 2019-07-12 20:25 | NUR ---
NURSE NOTES: [facility] ambulance personnel Emi and Romi arrived on the unit. Patient with increased anxiety. Provided anxiety medication. Informed [facility] personnel. Patient otherwise, breathing unlabored on room air without distress. No s/s or complaint of pain noted at this time. No IV access, MD aware. Skin intact. Belonging confirmed with [facility]. Documentation provided to [facility] ambulance to be delivered to [facility]. Patient transferred to [facility] without complication. ID band was removed. Patient left the unit in stable condition at 2014.
--- NOTE | 2019-07-12 21:45 | Discharge Summary ---
DATE OF ADMISSION: 07/07/2019 DATE OF DISCHARGE: 07/12/2019 HOSPITAL COURSE: This is elderly male who came to the emergency room for altered mental status. The patient also had a seizure episode. The patient initially admitted on telemetry bed and he had seizure. Neurology consult was obtained. The patient had episodes of hallucination and psychosis. Psychiatry consult was obtained. The patient was added on psych treatment. The patient did very well. The patient is physically doing better today and Psychiatry consult was obtained. DISCHARGE DIAGNOSES: 1. Psychosis. 2. Seizure. 3. Hypertension. DISPOSITION: The patient is going to go back to longterm. DIET: Usual regular diet. ACTIVITY: As tolerated. The patient is going to go back to the longterm. Rolan Romano M.D. DR: BRENNAN JOB#: [id number] CC:
--- NOTE | 2019-07-12 23:15 | Progress Note ---
DATE: 07/12/2019 SUBJECTIVE: The patient had an EEG, which revealed T4 slow and sharp wave discharges were seen during drowsiness. Otherwise, the background frequency is 8 to 9 hertz with drowsiness associated with 5 to 6 hertz theta range. The patient has not had any seizures, but still is awake and confused and was obeying commands. PHYSICAL EXAMINATION: VITAL SIGNS: Temperature is 97.9 degrees, pulse is 83 and regular, respiratory rate is 19, blood pressure is 127/83. MENTAL STATUS: Speech is dysarthric. . He is still in restraints. He knew he is in the hospital. Did not know the date or the name of the hospital. He did know his name. CRANIAL NERVE EXAMINATION: Cranial Nerve II: Visual fink are intact to confrontation. Cranial Nerves III, IV, and : Extraocular motility was full. Pupils approximately 4.5 mm roundl focus and slightly reactive to light. CRANIAL NERVE V: Corneal sensation was intact to fine touch. Cranial Nerve VII: Facial strength appeared to be fairly symmetrical. Cranial Nerves VIII through XII: Revealed that the tongue protrudes in the midline without fasciculations or atrophy. MUSCLE EXAMINATION: He could move all 4 extremities. Strength in the upper extremities lower extremities is 5/5. Tone is appropriate in all 4 extremities. REFLEXES: upgoing toes, upgoing toe on the right and hammertoes on the left. SENSORY: Intact to deep pain and pricking. IMPRESSION: The patient is improved. He has a seizure focussed on the right side. He is still confused. minimal influence of metabolic encephalopathy. The patient can continue the Keppra and Seroquel. The patient is still demented. PLAN: Continue Keppra as above. Rodo Vega MD DR: DAKSHA JOB#: [id number] CC: SHEN
--- NOTE | 2019-07-14 15:13 | NUR ---
*-* INSURANCE *-* ALL CLINICALS AND REVIEWS HAVE BEEN FAXED TO: [facility] Ref#[id number] CM: Palmira ext [phone] fax# [phone] & MARY Barragan ref# luís # [phone] fax#[phone]
--- NOTE | 2019-07-19 11:54 | NUR ---
*-* INSURANCE *-* ALL CLINICALS AND REVIEWS HAVE BEEN FAXED TO: [facility] ref# yet # [phone] fax#[phone]
== END 2019-07-12 20:20 | DRG 101 ==
LOC: EDBD 01:45 → EMR 01:56 → OBSVTOIN 03:23 → 2E 03:23 → EDBEDREQ 03:32 → 4E 17:29
DX: G40.909 Epilepsy, unspecified, not intractable, without status epilepticus (principal); I45.2 Bifascicular block; F03.91 Unspecified dementia, unspecified severity, with behavioral disturbance; F29 Unspecified psychosis not due to a substance or known physiological condition; I10 Essential (primary) hypertension; F03.90 Unspecified dementia, unspecified severity, without behavioral disturbance, psychotic disturbance, mood disturbance, and anxiety; F20.9 Schizophrenia, unspecified; Z87.820 Personal history of traumatic brain injury; F32.9 Major depressive disorder, single episode, unspecified
CPT/HCPCS: 36415; 70450; 71045; 80053; 80299; 80307; 81003; 85025; 87081; 95819; 96361; 96374; 96375; 99284; G0480; J7030

== ENCOUNTER 2020-02-01 15:51 | Inpatient (IN) | payer OTHER ==
[~2020-02-01] VITALS: Ht 160 cm; Wt 81.8 kg
[~2020-02-01 15:51] MED LIST changes: +ASPIR 8181 MG ORAL; +COLACE100 MG ORAL; +QUETIAPINE FUMA25 MG ORAL; +SEROQUEL100 MG ORAL; +VITAMIN D32000 UNI3 PO
[2020-02-01] MEDS ORDERED: Acetaminophen 650 MG SUPP RECTAL ONE (16:15)
[2020-02-01] MEDS ORDERED: LORazepam Inj 2mg/ml 1ml ONE (16:29)
[2020-02-01] MEDS ORDERED: LORazepam Inj 2mg/ml 1ml IV ONE (16:30)
--- NOTE | 2020-02-01 16:30 | Emergency Room Report ---
History of Present Illness General Chief Complaint: Seizure Source: Patient Present Illness HPI This patient presents from a senior care facility with a chief complaint of seizure and fever. The patient is a 64-year-old male with a recent history of left MCA CVA. This was early November of this year. History is obtained from the medical record and EMS. The patient has a history of schizophrenia, seizure disorder, conversion disorder, COPD, hypertension, dementia, CVA, hep C. At baseline, the patient is oriented only to person. The patient is unable to give a history of present illness. Allergies: Coded Allergies: No Known Allergies (Unverified , 08/16/18) COVID-19 Screening Contact w/high risk pt: Yes Experienced COVID-19 symptoms?: Yes COVID-19 Testing performed GREY TENDER: Yes - "2 weeks ago" COVID-19 Screening: Negative COVID-19 COVID-19 Testing Source: [facility] Patient History Past Medical History: see triage record, old chart reviewed, HTN, CAD, COPD, dementia, seizures, psych hx - schizophrenia, other - HCV, HLP Social History: Denies: smoking, alcohol use, drug use Reviewed Nursing Documentation: PMH: Agreed; PSxH: Agreed Nursing Documentation-PMH Hx Hypertension: Yes Hx COPD: Yes Hx Cancer: No Hx Gastrointestinal Problems: No History Of Psychiatric Problem: Yes - Schizophrenia, dementia, Hx Neurological Problems: Yes Hx Dementia: Yes Hx Seizures: Yes Hx Traumatic Brain Injury: Yes Review of Systems All Other Systems: limited Physical Exam Vital Signs Date Time Temp Pulse Resp B/P (MAP) Pulse Ox O2 Delivery O2 Flow Rate FiO2 02/01/20 15:54 100.9 128 25 126/74 (91) 93 Room Air Sp02 EP Interpretation: reviewed, abnormal General Appearance: no apparent distress, alert, GCS 15, non-toxic Head: normocephalic, atraumatic ENT: hearing grossly normal, no angioedema Neck: normal inspection, full range of motion Respiratory: chest non-tender, lungs clear, normal breath sounds, no respiratory distress, no retraction, no accessory muscle use, speaking full sentences Cardiovascular #1: no edema, tachycardia Gastrointestinal: normal inspection, soft, non-distended, no guarding, no rebound Rectal: deferred Musculoskeletal: normal inspection, normal range of motion, non-tender Neurologic: alert, responsive, other - oriented to person only. At baseline, based on review of chart. Psychiatric: mood/affect normal Skin: Decubitus/Ulcer - See RN skin exam Medical Decision Making Diagnostic Impression: Primary Impression: Fever Additional Impression: Seizures ER Course This patient presents with breakthrough seizures. He did have a low-grade fever of 100.9 and was tachycardic. I do not identify an infectious etiology at this time. Rapid COVID-19 was negative. Chest x-ray is clear without evidence of pneumonia. Phenytoin level was within normal limits. Urinalysis was negative for infection. As a precaution, I did go ahead and give broad- spectrum antibiotics given that he resides in a senior care facility. It is possible that he could have bacteremia. Regardless, he is admitted for further evaluation and treatment. Laboratory Tests Test 02/01/20 16:35 White Blood Count 10.2 K/UL (4.8-10.8) Red Blood Count 5.12 M/UL (4.70-6.10) Hemoglobin 15.4 G/DL (14.2-18.0) Hematocrit 47.4 % (42.0-52.0) Mean Corpuscular Volume 93 FL (80-99) Mean Corpuscular Hemoglobin 30.0 PG (27.0-31.0) Mean Corpuscular Hemoglobin Concent 32.4 G/DL (32.0-36.0) Red Cell Distribution Width 13.4 % (11.6-14.8) Platelet Count 180 K/UL (150-450) Mean Platelet Volume 6.7 FL (6.5-10.1) Neutrophils (%) (Auto) 68.2 % (45.0-75.0) Lymphocytes (%) (Auto) 21.1 % (20.0-45.0) Monocytes (%) (Auto) 7.7 % (1.0-10.0) Eosinophils (%) (Auto) 0.8 % (0.0-3.0) Basophils (%) (Auto) 2.2 % (0.0-2.0) H Urine Color Yellow Urine Appearance Clear Urine pH 5.0 (4.5-8.0) Urine Specific Erin 1.020 (1.005-1.035) Urine Protein Negative (NEGATIVE) Urine Glucose (UA) Negative (NEGATIVE) Urine Ketones Negative (NEGATIVE) Urine Blood Negative (NEGATIVE) Urine Nitrite Negative (NEGATIVE) Urine Bilirubin Negative (NEGATIVE) Urine Urobilinogen Normal MG/DL (0.0-1.0) Urine Leukocyte Esterase Negative (NEGATIVE) Sodium Level 142 MMOL/L (136-145) Potassium Level 4.1 MMOL/L (3.5-5.1) Chloride Level 102 MMOL/L (98-107) Carbon Dioxide Level 27 MMOL/L (21-32) Anion Gap 13 mmol/L (5-15) Blood Urea Nitrogen 12 mg/dL (7-18) Creatinine 1.2 MG/DL (0.55-1.30) Estimated Glomerular Filtration Rate > 60 mL/min (>60) Glucose Level 127 MG/DL (74-106) H Lactic Acid Level 1.50 mmol/L (0.4-2.0) Calcium Level 9.1 MG/DL (8.5-10.1) Total Bilirubin 0.3 MG/DL (0.2-1.0) Aspartate Amino Transferase (AST) 63 U/L (15-37) H Alanine Aminotransferase (ALT) 73 U/L (12-78) Alkaline Phosphatase 150 U/L (46-116) H Total Creatine Kinase 272 U/L (26-308) Creatine Kinase MB 1.4 NG/ML (0.0-3.6) Creatine Kinase MB Relative Index 0.5 Troponin I 0.000 ng/mL (0.000-0.056) Total Protein 8.9 G/DL (6.4-8.2) H Albumin 3.9 G/DL (3.4-5.0) Globulin 5.0 g/dL Albumin/Globulin Ratio 0.8 (1.0-2.7) L Phenytoin (Dilantin) Level 10.6 ug/mL (10-20) Microbiology Date/Time Source Procedure Growth Status 02/01/20 16:30 Nasopharynx SARS-CoV-2 RdRp Gene Assay - Final Complete EKG Diagnostic Results Rate: tachycardiac Rhythm: other - S.tachycardia ST Segments: no acute changes Rhythm Strip Diag. Results EP Interpretation: yes Rate: 130's Rhythm: no PVC's, no ectopy, other - S.tachycardia CT/MRI/US Diagnostic Results CT/MRI/US Diagnostic Results : Imaging Test Ordered: CT head Impression Old infarct. No acute findings. See official report in electronic medical record. Last Vital Signs Date Time Temp Pulse Resp B/P (MAP) Pulse Ox O2 Delivery O2 Flow Rate FiO2 02/01/20 15:54 100.9 128 25 126/74 (91) 93 Room Air Disposition: ADMITTED INPATIENT Condition: Serious Virginia Lawson DO Feb 01, 2020 16:30
[2020-02-01] MEDS ORDERED: KEPPRA1000 MG ORAL (16:42)
[2020-02-01] MEDS ORDERED: COLACE100 MG ORAL (16:42)
[2020-02-01] MEDS ORDERED: LIPITOR40 MG ORAL (16:42)
[2020-02-01] MEDS ORDERED: VITAMIN D310 MC1 PO (16:42)
[2020-02-01] MEDS ORDERED: SEROQUEL25 MG ORAL (16:43)
[2020-02-01] MEDS ORDERED: PLAVIX75 MG ORAL (16:43)
[2020-02-01] MEDS ORDERED: DILANTIN100 MG ORAL (16:43)
[2020-02-01 16:57] VITALS: BP 159/62
[2020-02-01 17:16] LABS: BASOPHILS % (AUTO) 2.2 % (0.0-2.0); EOSINOPHILS % (AUTO) 0.8 % (0.0-3.0); HEMATOCRIT 47.4 % (42.0-52.0); HEMOGLOBIN 15.4 G/DL (14.2-18.0); LYMPHOCYTES % (AUTO) 21.1 % (20.0-45.0); MEAN CORPUSCULAR VOLUME 93 FL (80-99); MONOCYTES % (AUTO) 7.7 % (1.0-10.0); NEUTROPHILS % (AUTO) 68.2 % (45.0-75.0); PLATELET COUNT 180 K/UL (150-450); RED BLOOD COUNT 5.12 M/UL (4.70-6.10); RED CELL DISTRIBUTION WIDTH 13.4 % (11.6-14.8); WHITE BLOOD COUNT 10.2 K/UL (4.8-10.8)
[2020-02-01 17:22] LABS: APPEARANCE,URINE CLEAR; COLOR,URINE YELLOW
[2020-02-01 17:23] LABS: BILIRUBIN, URINE NEGATIVE (NEGATIVE); GLUCOSE, URINE (UA) NEGATIVE (NEGATIVE); KETONES,URINE NEGATIVE (NEGATIVE); LEUKOCYTE ESTERASE ,URINE NEGATIVE (NEGATIVE); NITRITE,URINE NEGATIVE (NEGATIVE); PROTEIN,URINE NEGATIVE (NEGATIVE); UROBILINOGEN,URINE NORMAL MG/DL (0.0-1.0)
[2020-02-01 17:26] LABS: ANION GAP 13 mmol/L (5-15); BLOOD UREA NITROGEN 12 mg/dL (7-18); CALCIUM 9.1 MG/DL (8.5-10.1); CARBON DIOXIDE 27 MMOL/L (21-32); CHLORIDE 102 MMOL/L (98-107); CREATININE 1.2 MG/DL (0.55-1.30); POTASSIUM 4.1 MMOL/L (3.5-5.1); SODIUM 142 MMOL/L (136-145)
--- NOTE | 2020-02-01 17:38 | Diagnostic Imaging Report ---
Indication: Shortness of breath Technique: One view of the chest Comparison: 07/07/2019 Findings: The aorta is tortuous. The lungs pleural spaces are clear. The heart size is upper limits of normal. No significant change Impression: No acute process
[2020-02-01 17:39] LABS: ALANINE AMINOTRANSFERASE 73 U/L (12-78); ALBUMIN 3.9 G/DL (3.4-5.0); ALBUMIN/GLOBULIN RATIO 0.8 (1.0-2.7); ALKALINE PHOSPHATASE 150 U/L (46-116); ASPARTATE AMINO TRANSFERASE 63 U/L (15-37); BILIRUBIN,TOTAL 0.3 MG/DL (0.2-1.0); CKMB 1.4 NG/ML (0.0-3.6); CREATINE KINASE 272 U/L (26-308)
--- NOTE | 2020-02-01 18:40 | Diagnostic Imaging Report ---
EXAM: CT Head Without Intravenous Contrast CLINICAL HISTORY: Seizure. TECHNIQUE: Axial computed tomography images of the head/brain without intravenous contrast. CTDI is 53.4 mGy and DLP is 1072.2 mGy-cm. One or more of the following dose reduction techniques were used: automated exposure control, adjustment of the mA and/or kV according to patient size, use of iterative reconstruction technique. COMPARISON: 07/07/2019. FINDINGS: Brain: Encephalomalacia in the distribution of the left middle cerebral artery, unchanged from the previous study. Small vessel disease of aging. Area of encephalomalacia within the white matter of the left frontal lobe anteriorly, unchanged from the previous study. No hemorrhage. Ventricles: There is prominence of the ventricular system, cortical sulci, basilar cisterns, compatible with age-related atrophy. Bones/joints: The calvarium is within normal limits. No acute fracture. Soft tissues: Unremarkable. Sinuses: Visualized sinuses are unremarkable. Mastoid air cells: Mastoid air cells are well pneumatized. IMPRESSION: 1. Age-related atrophy and small vessel disease of aging. 2. Encephalomalacia of the left frontal and left parietal lobes is again noted, unchanged. 3. If there is concern for etiology such as early acute lacunar infarcts, magnetic resonance imaging should be performed. 4. Magnetic resonance imaging with gadolinium administration is advised to follow-up for the sake of completeness, given the patient's history of seizures.
[2020-02-01] MEDS ORDERED: Vancomycin 1 GM in NS 275 ML IVPB ONE (18:45)
[2020-02-01 19:10] VITALS: BP 143/71
[2020-02-01 20:20] VITALS: BP 128/78
[2020-02-01] MEDS: Atorvastatin 20mg tab ORAL SCH (21:00)
[2020-02-01] MEDS: Phenytoin 100mg cap ORAL SCH (22:00)
[2020-02-01] MEDS: D5NS 1,000 ML IV SCH (22:33)
[2020-02-01] MEDS: Pantoprazole Inj IVP SCH (22:35)
[2020-02-01] MEDS: Heparin 5000 units/ml inj SUBQ SCH (22:35)
[2020-02-01] MEDS: Piperacillin/Tazobactam 3.375 GM in NS 110 ML IVPB SCH (23:00)
[2020-02-01 23:05] VITALS: BP 123/56
[2020-02-02 04:00] VITALS: BP 132/59
[2020-02-02] MEDS: Phenytoin 100mg cap ORAL SCH (06:00)
[2020-02-02] MEDS: Piperacillin/Tazobactam 3.375 GM in NS 110 ML IVPB SCH ×3 (06:42→21:25)
[2020-02-02 06:56] LABS: BASOPHILS % (AUTO) 1.5 % (0.0-2.0); HEMATOCRIT 41.9 % (42.0-52.0); HEMOGLOBIN 13.7 G/DL (14.2-18.0); LYMPHOCYTES % (AUTO) 13.4 % (20.0-45.0); MEAN CORPUSCULAR VOLUME 90 FL (80-99); MONOCYTES % (AUTO) 7.8 % (1.0-10.0); NEUTROPHILS % (AUTO) 77.2 % (45.0-75.0); PLATELET COUNT 147 K/UL (150-450); RED BLOOD COUNT 4.67 M/UL (4.70-6.10); RED CELL DISTRIBUTION WIDTH 12.7 % (11.6-14.8); WHITE BLOOD COUNT 9.5 K/UL (4.8-10.8)
[2020-02-02 08:00] VITALS: BP 122/59
[2020-02-02 08:02] LABS: ALANINE AMINOTRANSFERASE 59 U/L (12-78); ALBUMIN 3.1 G/DL (3.4-5.0); ALBUMIN/GLOBULIN RATIO 0.7 (1.0-2.7); ALKALINE PHOSPHATASE 113 U/L (46-116); ANION GAP 8 mmol/L (5-15); ASPARTATE AMINO TRANSFERASE 43 U/L (15-37); BILIRUBIN,TOTAL 0.2 MG/DL (0.2-1.0); BLOOD UREA NITROGEN 9 mg/dL (7-18); CALCIUM 8.1 MG/DL (8.5-10.1); CARBON DIOXIDE 27 MMOL/L (21-32); CHLORIDE 102 MMOL/L (98-107); CREATININE 0.9 MG/DL (0.55-1.30); POTASSIUM 3.7 MMOL/L (3.5-5.1); SODIUM 137 MMOL/L (136-145)
[2020-02-02] MEDS: Docusate 100mg cap ORAL SCH (09:00)
[2020-02-02] MEDS ORDERED: Docusate 100mg cap ORAL SCH (09:00)
[2020-02-02] MEDS: Heparin 5000 units/ml inj SUBQ SCH ×2 (09:00→21:00)
[2020-02-02] MEDS: Aspirin EC 81mg tab ORAL SCH (09:14)
[2020-02-02] MEDS: D5NS 1,000 ML IV SCH ×2 (09:14→17:42)
--- NOTE | 2020-02-02 09:15 | History and Physical Report ---
DATE OF ADMISSION: 02/01/2020 CHIEF COMPLAINT: Seizures and fever. HISTORY OF PRESENT ILLNESS: The patient is a 64-year-old male, who has a history of seizure disorder, prior stroke, encephalopathy, COPD, and hepatitis C. [facility] with complaints of seizures and fever. He is currently awake, but is unable to provide any history. According to the patient's brother, he is minimally verbal, but does answer some questions and follow some commands. In the ER, his head CT was negative. Laboratories were otherwise unremarkable. His Dilantin level was 10. He was given a dose of lorazepam and is now admitted for further evaluation and care. PAST MEDICAL HISTORY: As above. PAST SURGICAL HISTORY: Unknown. CURRENT MEDICATIONS: Reconciled and reviewed. ALLERGIES: None. FAMILY HISTORY: Noncontributory. SOCIAL HISTORY: There is no known history of tobacco, ethanol, or drugs. REVIEW OF SYSTEMS: From the patient is unobtainable as he is currently awake, but nonverbal. PHYSICAL EXAMINATION: VITAL SIGNS: Temperature 98.5, pulse 86, respirations 18, and blood pressure 110/76. GENERAL: The patient is well developed, in no apparent distress. HEART: Regular rate and rhythm. LUNGS: Clear. ABDOMEN: Soft, nontender, and nondistended. EXTREMITIES: Without clubbing, cyanosis, or edema. NEUROLOGIC: The patient does move all 4 extremities, but he is awake, but does not really follow commands. LABORATORY DATA: Dilantin level is 10. White count 10, hemoglobin 15, hematocrit 47, platelets of 180,000. UA was clear. Chest x-ray is clear. Head CT showed age-related atrophy, encephalomalacia. ASSESSMENT: This is a 64-year-old male with a prior history of stroke, dementia, seizure disorder, traumatic brain injury, schizophrenia, and hepatitis C, admitted with complaints of seizures. PLAN: 1. Continue Dilantin. 2. Check a swallow evaluation. 3. Continue Keppra. 4. We will check an EEG. 5. DVT and stress ulcer prophylaxes. Edgard Broderick M.D. DR: ANNA JOB#: [id number] CC:
[2020-02-02] MEDS ORDERED: LORazepam Inj 2mg/ml 1ml IV PRN (09:45)
[2020-02-02 11:10] VITALS: BP 107/60
[2020-02-02] MEDS: Vancomycin 1gm/D5W 275ml IVPB SCH ×4 (11:33→23:00)
[2020-02-02] MEDS: Phenytoin Susp 100mg/4ml ORAL SCH ×2 (14:00→21:25)
[2020-02-02 16:00] VITALS: BP 114/64
[2020-02-02 20:00] VITALS: BP 111/64
[2020-02-02] MEDS: Pantoprazole Inj IVP SCH (21:19)
[2020-02-02] MEDS: Atorvastatin 20mg tab ORAL SCH (21:26)
[2020-02-03] VITALS: BP 111/61
[2020-02-03 04:00] VITALS: BP 105/59
[2020-02-03] MEDS: D5NS 1,000 ML IV SCH ×2 (04:00→13:30)
[2020-02-03] MEDS: Piperacillin/Tazobactam 3.375 GM in NS 110 ML IVPB SCH ×2 (05:15→13:30)
[2020-02-03] MEDS: Phenytoin Susp 100mg/4ml ORAL SCH ×2 (05:15→13:38)
[2020-02-03 08:00] VITALS: BP 104/51
[2020-02-03] MEDS: Aspirin EC 81mg tab ORAL SCH (08:32)
[2020-02-03] MEDS: Docusate 100mg cap ORAL SCH (08:33)
[2020-02-03] MEDS: Heparin 5000 units/ml inj SUBQ SCH (08:34)
[2020-02-03] MEDS: Vancomycin 1gm/D5W 275ml IVPB SCH ×2 (11:08)
[2020-02-03 12:00] VITALS: BP 131/47
--- NOTE | 2020-02-03 14:00 | Electroencephalogram ---
DATE OF PROCEDURE: 02/02/2020 REQUESTING PHYSICIAN: Edgard Broderick MD. READING PHYSICIAN: Jin Yanez MD. PROCEDURE PERFORMED: Electroencephalogram. HISTORY: This EEG was performed on a 64-year-old gentleman with a history of multiple medical problems including cerebrovascular disease and seizures. The patient was hospitalized for a fever associated with uncontrolled seizures. The purpose of this EEG was to evaluate the patient for ongoing ictal or interictal phenomena. TECHNICAL NOTE: This EEG was performed on a [email or web address] with electrodes placed on the scalp according to the International 10-20 system. [id number] and mjesn-dj-[id number] montages were used. The EEG was technically satisfactory and was performed in the awake, drowsy, and sleep states. OBSERVATIONS: In the awake, but not very responsive state, the background activity consisted of 6-7 Hz of posterior theta activity. Drowsiness was characterized by irregular 4-5 Hz theta with some intermixed delta frequencies and a few interspersed triphasic waveforms. During drowsiness, left frontotemporal polymorphic delta activity was also seen. Stage II sleep was characterized by further slowing of the background in the delta and theta range, the presence of vertex waves and 12 hertz sleep spindles. No epileptiform discharges were seen. IMPRESSION: This is an abnormal EEG characterized by: 1. Slowing of the background in the 6-7 Hz theta range in the best awake state. 2. The presence of triphasic waveforms. 3. The presence of left frontotemporal polymorphic delta activity. COMMENT: This study is consistent with: 1. An encephalopathy of a moderate degree. Most probably with a metabolic component is evidenced by the triphasic waveforms. 2. Left frontotemporal focal dysfunction. Clinical correlation is recommended. Jin Yanez M.D.,. M.S.P.H. DR: LISS JOB#: [id number]
[2020-02-03] MEDS ORDERED: PHENYTOIN100 MG/4 M ORAL (14:20)
[2020-02-03 16:00] VITALS: BP 96/41
[2020-02-03] MEDS ORDERED: Vancomycin 1gm/D5W 275ml IVPB SCH ×2 (20:00)
--- NOTE | 2020-02-05 13:20 | Discharge Summary ---
Discharge Summary Discharge Summary _ DATE OF ADMISSION: 02/01/2020 DATE OF DISCHARGE: 02/03/2020 DISCHARGED BY: Dr. Edgard Broderick BRIEF HOSPITAL COURSE: The patient is a 64-year-old male, who has history of seizure disorder, prior stroke, encephalopathy, COPD and hepatitis C. [facility] and fever. Patient is awake but unable to give any history. According to patient's brother, he is minimally verbal, but does answer some questions and follow commands. Upon evaluation at ED, patient was febrile at 100.9. Blood pressure was stable , heart rate is elevated to 128. Rapid COVID-19 was negative. Blood work did not show any leukocytosis. Chest x-ray did not show any evidence of pneumonia. Urinalysis was negative for infection. Dilantin level was 10. He was given a dose of lorazepam. He was given broad-spectrum antibiotics. Head CT showed age-related atrophy; encephalomalacia of the left frontal and left parietal lobe , unchanged. He was admitted for evaluation of fever and seizures. He was admitted to monitored floor. He was placed on seizure precautions. He was given Keppra 1000 mg twice daily. Dilantin was increased 250 mg every 8 hours. He was given Protonix for GI protection. He was treated empirically with IV vancomycin and Zosyn. EEG showed encephalopathy of moderate degree. Probably with metabolic component as evidenced by triphasic waveforms. Left frontotemporal focal dysfunction. Patient eventually defervesced. Cultures were negative. There was no recurrence of seizure activity. Patient was cleared for discharge back to [facility]. FINAL DIAGNOSES: Seizure disorder History of stroke Dementia Traumatic brain injury Schizophrenia Hepatitis C DISPOSITION: DC back to SNF. DISCHARGE MEDICATIONS: Refer to Discharge Medication List. Right I have been assigned to complete a discharge summary on this account, I was not involved with the patient's management.--JERILYN Corcoran Jacqueline Robles NP Feb 05, 2020 13:20
== END 2020-02-03 19:20 | DRG 53 ==
LOC: EDBD 15:51 → EMR 16:35 → 2E 20:00 → EDBEDREQ 20:18 → 2E 02-02 09:06
DX: G40.909 Epilepsy, unspecified, not intractable, without status epilepticus (principal); G93.41 Metabolic encephalopathy; F03.90 Unspecified dementia, unspecified severity, without behavioral disturbance, psychotic disturbance, mood disturbance, and anxiety; F20.9 Schizophrenia, unspecified; B19.20 Unspecified viral hepatitis C without hepatic coma; Z86.73 Personal history of transient ischemic attack (TIA), and cerebral infarction without residual deficits; J44.9 Chronic obstructive pulmonary disease, unspecified; R50.9 Fever, unspecified; Z87.820 Personal history of traumatic brain injury
CPT/HCPCS: 36415; 70450; 71045; 80053; 80185; 80202; 81003; 82550; 82553; 83605; 84484; 85025; 87040; 87081; 93005; 95819; 96361; 96365; 96375; 99285; J7030; U0002